=== PATIENT | female | born 1990 | race Caucasian/White ===

== ENCOUNTER → 2017-05-17 | Outpatient (CLI) | payer BC, OTHER ==
[~2017-05-17] MED LIST: PRENTAB26 PO
== END | disposition home or self-care (01) ==
LOC: C.PAPS 06:54
PROVIDERS: ATTEND Physician Assistant
DX: Z12.4 Encounter for screening for malignant neoplasm of cervix (principal)

== ENCOUNTER → 2017-07-06 | Outpatient (CLI) | payer BC ==
[2017-07-06 19:27] LABS: URINE APPEARANCE CLEAR (CLEAR); URINE BILIRUBIN NEG (NEG); URINE COLOR YELLOW; URINE EPITHELIAL CELL AUTO >30 /lpf (0-5); URINE NITRITE NEG (NEG); URINE PH 6.5 (4.5-7.5); URINE SPECIFIC GRAVITY 1.018 (1.000-1.030); UROBILINOGEN NEG (NEG)
[2017-07-06 19:28] LABS: MANUAL MICROSCOPIC REQUIRED? NO; REVIEW REQ? NO
[2017-07-08 14:59] LABS: CHLAMYDIA TRACH RNA*** NOT DETECTED (NOT DETECTED); GC (NEIS GONORRHOEAE)RNA** NOT DETECTED (NOT DETECTED)
== END | disposition home or self-care (01) ==
LOC: C.LABSPEC 17:41
PROVIDERS: ATTEND Obstetrics & Gynecology
DX: Z34.81 Encounter for supervision of other normal pregnancy, first trimester (principal)

== ENCOUNTER → 2017-11-22 | Outpatient (CLI) | payer OTHER | END | disposition home or self-care (01) | LOC: C.LABSPEC 17:33 | PROVIDERS: ATTEND Obstetrics & Gynecology | DX: Z34.82 Encounter for supervision of other normal pregnancy, second trimester (principal) ==

== ENCOUNTER → 2018-01-04 | Outpatient (CLI) | payer OTHER ==
[2018-01-04 18:28] LABS: BASO % 0.2 %; BASO ABS # 0.03 K/uL (0-0.2); EOS % 2.3 %; HEMATOCRIT 37.8 % (37-47); HEMOGLOBIN 13.1 g/dL (12.0-16.0); IG# 0.05 K/uL (0.00-0.02); LYMPH % 17.4 %; LYMPH ABS # 2.28 K/uL (1.2-3.4); MEAN CELL VOLUME 85.9 fL (80-100); MEAN CORPUSCULAR HEMOGLOBIN 29.8 pg (25-34); MEAN CORPUSCULAR HGB CONC 34.7 g/dl (32-36); MEAN PLATELET VOLUME 10.8 fL (7.4-10.4); MONO % 6.4 %; MONO ABS # 0.84 K/uL (0.11-0.59); NEUT % 73.3 %; NEUT ABS # 9.62 K/uL (1.4-6.5); PLATELET COUNT 249 K/uL (130-400); RED CELL DISTRIBUTION WIDTH CV 13.6 % (11.5-14.5); RED CELL DISTRIBUTION WIDTH SD 42.9 fL (36.4-46.3); WHITE BLOOD COUNT 13.12 K/uL (4.8-10.8)
[2018-01-04 18:35] LABS: ALT/SGPT 25 U/L (12-78); BLOOD UREA NITROGEN 12 mg/dl (7-18); CARBON DIOXIDE 27 mmol/L (21-32); CREATININE 0.53 mg/dl (0.60-1.20); GLUCOSE 83 mg/dl (70-99); POTASSIUM 4.4 mmol/L (3.5-5.1); SODIUM 133 mmol/L (136-145)
[2018-01-04 18:38] LABS: ALKALINE PHOSPHATASE 82 U/L (45-117); AST/SGOT 22 U/L (15-37); TOTAL PROTEIN 6.8 gm/dl (6.4-8.2)
== END | disposition home or self-care (01) ==
LOC: C.MNPGOH 17:42 → EDSTATUS 17:47 → C.LABSPEC 17:54
PROVIDERS: ATTEND Nurse Practitioner Family
DX: Z77.098 Contact with and (suspected) exposure to other hazardous, chiefly nonmedicinal, chemicals (principal); Y99.0 Civilian activity done for income or pay

== ENCOUNTER 2018-01-24 09:01 | Outpatient (CLI) | payer OTHER | END 2018-01-24 10:25 | disposition home or self-care (01) | LOC: C.OPB 09:01 → C.LD 09:02 → C.OPB 10:25 | PROVIDERS: ATTEND Obstetrics & Gynecology | DX: O32.1XX0 Maternal care for breech presentation, not applicable or unspecified (principal); O36.5930 Maternal care for other known or suspected poor fetal growth, third trimester, not applicable or unspecified; Z3A.00 Weeks of gestation of pregnancy not specified ==

== ENCOUNTER 2018-02-03 03:06 | Inpatient (IN) | payer OTHER ==
[~2018-02-03] VITALS: Ht 165.1 cm; Wt 69.0 kg
[2018-02-03] VITALS (15 sets, daily range): BP systolic 101–107; BP diastolic 64–67; PULSE 65–70; TEMP 36.4–36.9; O2SAT 95–100; Ht 165.1 cm; Wt 69.0 kg
[2018-02-03] MEDS ORDERED: LACTATED RINGER'S 1000ML 1,000 ML IV SCH ×2 (03:56→14:00)
[2018-02-03] MEDS ORDERED: CITRIC ACID/SODIUM CITRATE 15 ML UDC PO ONE (04:00)
--- NOTE | 2018-02-03 04:08 | History & Physical Bridge Note ---
H&P Re-Evaluation Bridge Note: I have examined the patient, reviewed the History & Physical and in the interval since the performance of the History & Physical I have noted the following changes of clinical significance: Patient presented in active labor with breech presentation. PN record reviewed and accepted without changes otherwise. US used to confirm presentation of fetus before moving to delivery.
[2018-02-03] MEDS ORDERED: OXYTOCIN INJ 10 UNITS/ML VIAL ONE (04:11)
[2018-02-03] MEDS ORDERED: FENTANYL CITRATE INJ 50 MCG/1 ML 2 ML VIAL ONE (04:14)
[2018-02-03] MEDS ORDERED: CEFAZOLIN IV 2,000 MG in SYRINGE 0 ML IV SCH (04:15)
[2018-02-03] MEDS ORDERED: MoRPHine SULFATE PF 1 MG/ML 10 ML AMP/VIAL ONE (04:15)
[2018-02-03 04:23] LABS: BASO % 0.1 %; BASO ABS # 0.01 K/uL (0-0.2); EOS ABS # 0.89 K/uL (0-0.5); HEMATOCRIT 37.2 % (37-47); HEMOGLOBIN 12.8 g/dL (12.0-16.0); IG# 0.06 K/uL (0.00-0.02); LYMPH % 17.4 %; MEAN CELL VOLUME 84.9 fL (80-100); MEAN CORPUSCULAR HEMOGLOBIN 29.2 pg (25-34); MEAN PLATELET VOLUME 10.3 fL (7.4-10.4); MONO ABS # 1.01 K/uL (0.11-0.59); NEUT ABS # 8.49 K/uL (1.4-6.5); PLATELET COUNT 228 K/uL (130-400); RED CELL DISTRIBUTION WIDTH CV 13.5 % (11.5-14.5); RED CELL DISTRIBUTION WIDTH SD 41.8 fL (36.4-46.3); WHITE BLOOD COUNT 12.66 K/uL (4.8-10.8)
[2018-02-03] MEDS ORDERED: FERR1TAB23 (04:26)
[2018-02-03 05:31] LABS: MEAN CORPUSCULAR HGB CONC 34.4 g/dl (32-36)
[2018-02-03] MEDS ORDERED: SODIUM CHLORIDE 0.9% 1000ML 1,000 ML IV PRN (05:43)
[2018-02-03] MEDS ORDERED: NALOXONE HCL INJ 1 MG in SODIUM CHLORIDE 0.9% 1000ML 1,000 ML IV PRN ×4 (05:43)
[2018-02-03] MEDS ORDERED: LACTATED RINGER'S 1000ML 500 ML IV PRN (05:43)
[2018-02-03] MEDS ORDERED: NALOXONE HCL INJ 0.08 MG in SYRINGE 1.8 ML IV PRN (05:43)
[2018-02-03] MEDS ORDERED: SUPERCREAM 0.870 % 15GM JAR EXT PRN (05:45)
[2018-02-03] MEDS ORDERED: NO NARCOTICS OR SEDATIVES SCH (05:45)
[2018-02-03] MEDS ORDERED: EpHEDrine SULFATE INJ 50 MG/ML AMP IV PRN (05:45)
[2018-02-03] MEDS ORDERED: ONDANSETRON INJ 2 MG/ML 2 ML VIAL IV PRN ×2 (05:45→23:45)
[2018-02-03] MEDS ORDERED: KETOROLAC TROMETHAMINE 30 MG/ML VIAL IV. PRN ×2 (05:45→23:45)
[2018-02-03] MEDS ORDERED: NALOXONE HCL 0.4 MG/1 ML VIAL/CARP IV PRN (05:45)
[2018-02-03] MEDS ORDERED: HYDROCORTISONE ACETATE 25 MG SUPP PR PRN (05:45)
[2018-02-03] MEDS ORDERED: NALBUPHINE HCL INJ 10 MG/ML AMP IV PRN (05:45)
[2018-02-03] MEDS ORDERED: BENZOCAINE 20% AER SPR 82.5 GM CAN EXT PRN (05:45)
[2018-02-03] MEDS ORDERED: PROMETHAZINE HCL INJ 25 MG in SODIUM CHLORIDE 0.9% 50ML 50 ML IV PRN ×2 (05:45→23:45)
[2018-02-03] MEDS ORDERED: MoRPHine SULFATE PF 1 MG/ML 10 ML AMP/VIAL EPI PRN (05:45)
[2018-02-03] MEDS ORDERED: DiphenhydrAMINE HCL 50 MG/ML VIAL IV PRN ×2 (05:45→23:45)
[2018-02-03] MEDS ORDERED: LANOLIN OINT EXT PRN (05:45)
--- NOTE | 2018-02-03 05:49 | [facility] Post Operative Brief Note ---
Immediate Operative Summary Operative Date Feb 03, 2018. Pre-Operative Diagnosis Breech, Active Labor Post-Operative Diagnosis Breech, Active Labor Procedure(s) Performed Primary low transverse Surgeon RENETTA Interior Design Teacher Surgeon(s) HOLLIS Estimated Blood Loss 500CC Findings Consistent with Post-Op Diagnosis Specimens PLACENTA EXAM CORD BLOOD CORD GASES Drains None Anesthesia Type Spinal Complication(s) none Disposition Accompanied Pt To Recover: yes Disposition: L&D
[2018-02-03] MEDS ORDERED: OXYTOCIN INJ 30 UNITS in LACTATED RINGER'S 1000ML 1,000 ML IV SCH (06:00)
[2018-02-03] MEDS ORDERED: ONDANSETRON INJ 2 MG/ML 2 ML VIAL ONE (06:22)
--- NOTE | 2018-02-03 06:51 | OPERATIVE REPORT ---
DATE OF OPERATION: 02/03/2018 PREOPERATIVE DIAGNOSES: 1. Sánchez intrauterine in kiya breech position. 2. Active labor. POSTOPERATIVE DIAGNOSES: Same. PROCEDURE: Primary low transverse section. SURGEON: Joselin Tamayo MD SALES CONSULTANT: Matt Gentile MD ESTIMATED BLOOD LOSS: 500 mL. FINDINGS: Normal tubes and ovaries bilaterally. in kiya breech position. SPECIMENS: Placenta for exam, cord blood and cord gases. DRAINS: None. ANESTHESIA: Spinal. COMPLICATIONS: None. DISPOSITION: Stable to labor and delivery. DESCRIPTION OF PROCEDURE: Lia is a 28-year-old 2, para 1 with a history of a prior vaginal delivery; however, this baby is in breech position; therefore, she was planned for section on 02/04/2018; however, on the very cargo bracer hours of February 03, she presented to the hospital in active labor, found to be 6 cm dilated and confirmed to still be in kiya breech position. Lia was therefore brought to the operating room for a section. Spinal anesthesia was established. The patient was placed in supine position with a leftward tilt, prepped and draped in standard sterile fashion and a hard time-out was taken prior to proceeding. A Pfannenstiel incision was created and carried sharply through the subcutaneous tissue to the fascia which was incised and then extended using Stevens scissors. Artie's were applied superiorly and inferiorly and used to sharply and bluntly dissect the fascia off the underlying rectus. The midline of the rectus was partially in a blunt manner and the inferior portion was in a sharp manner. Peritoneum was then bluntly entered. The bladder blade was placed. Lower uterine segment was found to be well developed. Entry to the uterus was made in a blunt manner using a scalpel to create a transverse hysterotomy and a finger to make final entry to the cavity. The fetus was encountered in kiya breech position with sacrum anterior. The sacrum and buttocks were delivered using mild fundal pressure. Each leg was then retrieved and swept in a physiologic fashion. The body delivered and each arm was then swept in a physiologic fashion and then the head was delivered while maintaining flexion. The vigorous infant was placed on the field while the cord was doubly clamped and cut, and the was then taken to the warmer. Cord gases and cord blood were collected. The placenta was then manually extracted and found to be intact with a 3-vessel cord. The uterus was exteriorized, cleared of all clot and debris using a dry lap sponge. Allis clamps were then placed on the angles of the hysterotomy, which was repaired in the usual fashion with 0 Vicryl suture in a locked primary layer in an imbricating secondary layer. Of note, there was slight extension of the right angle of the hysterotomy inferiorly towards, but not into the cervix; however, this was able to be repaired in 1 continuous line with the hysterotomy and her scar remains low transverse. At the completion of repair, the posterior gutter was cleared of all clot and debris using irrigation, the uterus was then gently reapproximated and the lateral gutters were cleared of clot and debris using a damp lap sponges. The hysterotomy was examined off tension and found to be hemostatic. The rectus muscles were allowed to rest, off tension and these were nearly completely together in the midline. For that reason, the decision was made to go ahead and close the midline of the rectus muscles, which was done using 0 chromic suture in a running nonlocked fashion. Following closure of the rectus, the fascia was closed using #1 Vicryl suture in a running nonlocked manner. At the completion of the repair, the fascia was examined and found to be free of defect. The subcutaneous tissue was copiously irrigated and then closed with a 3-0 chromic. The skin was then sealed using 4-0 Monocryl in a running subcuticular manner and a Dermabond dressing. The López was draining clear yellow urine at the time and the patient was transferred back to her recovery room in stable condition. I attest to the content of the Intraoperative Record and any orders documented therein. Any exception s are noted below.
[2018-02-03] MEDS: DOCUSATE SODIUM 100 MG CAP PO SCH ×2 (08:00→22:23)
[2018-02-03] MEDS: PRENATAL VITAMIN TAB PO SCH (08:00)
[2018-02-03] MEDS: SIMETHICONE 80 MG CHEW PO SCH ×4 (08:12→22:23)
[2018-02-03] MEDS ORDERED: MEPERIDINE HCL 50 MG/ML CARP IV PRN ×2 (23:45)
[2018-02-03] MEDS ORDERED: DC INTRASPINAL MORPHINE SCH (23:45)
[2018-02-03] MEDS ORDERED: OXYCODONE/ACETAMINOPHEN 5-325 TAB PO PRN ×2 (23:45)
[2018-02-04 00:05] VITALS: BP 102/68; PULSE 64; TEMP 36.5; O2SAT 99
[2018-02-04] MEDS: IBUPROFEN 600 MG TAB PO PRN ×5 (00:59→21:21)
[2018-02-04 04:30] VITALS: BP 93/59; PULSE 72; TEMP 36.4; O2SAT 99
[2018-02-04 06:05] LABS: BASO % 0.2 %; BASO ABS # 0.03 K/uL (0-0.2); EOS % 2.3 %; EOS ABS # 0.33 K/uL (0-0.5); HEMATOCRIT 32.2 % (37-47); HEMOGLOBIN 10.9 g/dL (12.0-16.0); IG# 0.06 K/uL (0.00-0.02); LYMPH % 14.7 %; LYMPH ABS # 2.15 K/uL (1.2-3.4); MEAN CELL VOLUME 85.2 fL (80-100); MEAN CORPUSCULAR HEMOGLOBIN 28.8 pg (25-34); MEAN CORPUSCULAR HGB CONC 33.9 g/dl (32-36); MEAN PLATELET VOLUME 9.8 fL (7.4-10.4); MONO % 9.5 %; MONO ABS # 1.39 K/uL (0.11-0.59); NEUT % 72.9 %; PLATELET COUNT 214 K/uL (130-400); RED CELL DISTRIBUTION WIDTH CV 13.8 % (11.5-14.5); RED CELL DISTRIBUTION WIDTH SD 42.5 fL (36.4-46.3); WHITE BLOOD COUNT 14.66 K/uL (4.8-10.8)
--- NOTE | 2018-02-04 06:58 | Progress Note ---
Subjective Feb 04, 2018. Subjective conversation w/ patient, conversation w/ family, physical exam, chart review, lab review Ambulation: ambulating normally Voiding: no voiding problems Passing Gas: Yes Diet Tolerance: Regular Diet Lochia: Moderate Feeding Type: Breast Feeding Review of Systems Constitutional: No fever, No chills Respiratory: No cough, No shortness of breath Cardiac: No chest pain, No palpitations Abdomen: No pain, No nausea, No vomiting Female : No dysuria Objective Vital Signs Date Time Temp Pulse Resp B/P (MAP) Pulse Ox O2 Delivery O2 Flow Rate FiO2 02/04/18 04:30 36.4 72 16 93/59 (70) 99 Room Air 02/04/18 00:05 99 Room Air 02/04/18 00:05 36.5 64 16 102/68 (79) 99 Room Air 02/03/18 22:00 16 98 02/03/18 21:00 16 99 02/03/18 20:00 16 98 02/03/18 19:30 36.8 66 16 107/67 (80) Room Air 02/03/18 19:00 16 98 02/03/18 18:00 16 99 02/03/18 17:00 16 99 02/03/18 16:00 36.9 69 16 102/65 (77) Room Air 02/03/18 16:00 99 Room Air 02/03/18 16:00 20 99 02/03/18 14:10 20 99 02/03/18 13:10 18 100 02/03/18 12:10 18 97 02/03/18 11:10 36.5 65 18 101/67 (78) 99 Room Air 02/03/18 11:10 18 99 02/03/18 10:10 36.4 70 18 102/64 (77) 99 Room Air 02/03/18 10:10 18 99 02/03/18 09:10 18 99 02/03/18 09:10 36.4 65 16 101/64 (76) 99 Room Air 02/03/18 08:10 98 Room Air 02/03/18 08:10 18 95 02/03/18 08:10 36.5 66 18 106/66 (79) 95 Room Air 02/03/18 08:10 95 Room Air Physical Exam General Appearance: WELL-APPEARING, WD/WN, NO APPARENT DISTRESS Respiratory/Chest: lungs clear, no respiratory distress Cardiovascular: regular rate, rhythm, no murmur Abdomen: non tender, soft Fundus: Firm, Relation to Umbilicus (1 cm below ) Incision Description: Clean, Dry & Intact Extremities: non-tender, normal inspection Laboratory Results Last 24 Hours Test 02/04/18 05:58 White Blood Count 14.66 K/uL Red Blood Count 3.78 M/uL Hemoglobin 10.9 g/dL Hematocrit 32.2 % Mean Corpuscular Volume 85.2 fL Mean Corpuscular Hemoglobin 28.8 pg Mean Corpuscular Hemoglobin Concent 33.9 g/dl Platelet Count 214 K/uL Mean Platelet Volume 9.8 fL Neutrophils (%) (Auto) 72.9 % Lymphocytes (%) (Auto) 14.7 % Monocytes (%) (Auto) 9.5 % Eosinophils (%) (Auto) 2.3 % Basophils (%) (Auto) 0.2 % Neutrophils # (Auto) 10.70 K/uL Lymphocytes # (Auto) 2.15 K/uL Monocytes # (Auto) 1.39 K/uL Eosinophils # (Auto) 0.33 K/uL Basophils # (Auto) 0.03 K/uL RDW Standard Deviation 42.5 fL RDW Coefficient of Variation 13.8 % Immature Granulocyte % (Auto) 0.4 % Immature Granulocyte # (Auto) 0.06 K/uL Medications Current Inpatient Medications Medications (Trade) Dose Ordered Sig/Ashkan Route Start Time Stop Time Status Last Admin Dose Admin Morphine Sulfate (Duramorph Pf Inj) TODAY PRN EPI 02/03/18 05:45 Lactated Ringer's 1,000 ml @ 125 mls/hr Q8H IV 02/03/18 14:00 03/05/18 13:59 02/03/18 14:58 125 MLS/HR Ketorolac Tromethamine (Toradol Inj) 30 mg Q6H PRN IV. 02/03/18 23:45 02/08/18 23:44 Meperidine HCl (Demerol Inj) 50 mg Q4H PRN IV 02/03/18 23:45 02/17/18 23:44 Meperidine HCl (Demerol Inj) 75 mg Q4H PRN IV 02/03/18 23:45 02/17/18 23:44 Oxycodone/ Acetaminophen (Percocet 5-325mg Tab) 1 tab Q4H PRN PO 02/03/18 23:45 02/17/18 23:44 Oxycodone/ Acetaminophen (Percocet 5-325mg Tab) 2 tab Q4H PRN PO 02/03/18 23:45 02/17/18 23:44 Ibuprofen (Motrin Tab) 600 mg Q4H PRN PO 02/03/18 05:45 03/05/18 05:44 02/04/18 00:59 600 MG Promethazine HCl 25 mg/Sodium Chloride 51 ml @ 204 mls/hr Q4H PRN IV 02/03/18 23:45 03/05/18 23:44 Ondansetron HCl (Zofran Inj) 4 mg Q4H PRN IV 02/03/18 23:45 03/05/18 23:44 02/03/18 06:25 4 MG Prenat Multivit/ Oil Mixer/Iron/Folic Ac ( Vitamin Tab) 1 tab DAILY PO 02/03/18 08:00 03/05/18 07:59 Docusate Sodium (coLACE CAP) 100 mg BID PO 02/03/18 08:00 03/05/18 07:59 02/03/18 22:23 100 MG Cocaine HCl (Supercream 0.870% Cr) BID PRN EXT 02/03/18 05:45 02/17/18 05:44 Lanolin (Lanolin Oint) PRN PRN EXT 02/03/18 05:45 03/05/18 05:44 Hydrocortisone Acetate (Anusol Hc Supp) 25 mg BID PRN RI 02/03/18 05:45 03/05/18 05:44 Benzocaine (Dermoplast Aero Spr) 1 appln PRN PRN EXT 02/03/18 05:45 03/05/18 05:44 Simethicone (Mylicon Chew Tab) 80 mg QID PO 02/03/18 08:12 03/05/18 08:59 02/03/18 22:23 80 MG Diphenhydramine HCl (Benadryl Cap) 25 mg QID PRN PO 02/03/18 23:45 03/05/18 23:44 Diphenhydramine HCl (Benadryl Inj) 25 mg QID PRN IV 02/03/18 23:45 03/05/18 23:44 Assessment and Plan Post-Op Day#: 1 Continue Routine Care: 28, F, , A+/GBS+/RI, post op day 1. Patient is doing well clinically. She has been up ambulating with out dizziness. López was removed last evening and has urinated on her own since without issue. Vitals reviewed, WNL. Hgb 12.8 on admission--->pending this am. Plan; 1. Recovery following csection; ambulate, control pain, monitor lochia, support BF, monitor i/o's Resident Physician Supervision Note: I interviewed and examined the patient. Discussed with Dr. Carmona and agree with findings and plan as documented in the note. Any exceptions or clarifications are listed here: routine care doing well Documented By: Matt Gentile
[2018-02-04] MEDS: DOCUSATE SODIUM 100 MG CAP PO SCH ×2 (07:54→20:40)
[2018-02-04] MEDS: PRENATAL VITAMIN TAB PO SCH (07:54)
[2018-02-04] MEDS: SIMETHICONE 80 MG CHEW PO SCH ×4 (07:54→20:40)
[2018-02-04 08:00] VITALS: BP 97/63; PULSE 94; TEMP 36.7
[2018-02-04 16:40] VITALS: BP 97/64; PULSE 70; TEMP 36.7
[2018-02-04 23:20] VITALS: BP 105/70; PULSE 74; TEMP 36.7
[2018-02-05] MEDS: IBUPROFEN 600 MG TAB PO PRN ×2 (03:39→08:45)
--- NOTE | 2018-02-05 06:12 | Discharge Instructions ---
Discharge Instructions Date of Service Feb 05, 2018. Admission Reason for Admission: Breech Presentation Discharge Discharge Diagnosis / Problem: csection Discharge Goals Goal(s): Routine recovery after Medications Continue Dispensed Medications: supercream, dermaplast, tucks, lansinoh Activity Recommendations Activity Limitations: per Instructions/Follow-up section . Instructions / Follow-Up Instructions / Follow-Up ACTIVITY RECOMMENDATIONS: * Gradual return to full activity over the next 2-3 weeks. * No lifting - nothing heavier than baby over the next 2-3 weeks. * Do not engage in vigorous exercise, sexual activity or sports until cleared by your physician. * Do not drive or operate any motorized equipment until cleared by your physician. * You may shower/bathe daily. MEDICATIONS: For discomfort or pain, you may use Acetaminophen (Tylenol), Ibuprofen (Advil), or Naproxen (Aleve) following the package directions. For constipation you may use Colace following the package directions. BREAST CARE: If you are not breast feeding: * Wear a supportive bra 24 hours a day for one to two weeks. * Avoid stimulating your breasts and nipples as much as possible during the first few weeks after delivery. * When taking a shower, have the warm water hit your back, not breasts. * When your breasts feel full, apply ice packs. Usually three to four times a day helps ease the discomfort. * Take a mild pain medication (Tylenol / Motrin) when you are uncomfortable. If breast feeding: * Use breast milk to lubricate nipples. Lansinoh cream may be used for sore nipples. You do not need to remove cream prior to breast feeding. If using a different brand of cream, check the label for directions regarding removal of cream prior to nursing. * Wear a supportive bra. * If having problems with breasts or breast feeding, call a executive search consultant or your health care provider. SPECIAL CARE INSTRUCTIONS: When you are discharged from the hospital, it is important for you to follow the instructions listed below: * During the first week at home, you should be able to care for yourself and your baby. In addition, the usual light household activities are encouraged. * Limit your activities to the way you feel. Do not try to clean the house or move furniture. Be sensible. * If you actively engage in sports and have done so up until the time of your delivery, you may resume these activities as soon as you feel able. This may take up to one month or even longer. Use good judgment. * Continue to take your vitamins for at least six weeks after the of your baby. * Your diet need not be limited unless you were on a special diet before your delivery. Breast-feeding mothers need around 2500 calories per day and at least 64-80 ounces of fluid per day (8 to 10 glasses). * You should eat foods from the four major food groups. Crash diets or fad diets are to be avoided. Eating lean meats, fresh fruits and vegetables, low-fat dairy products, high fiber foods and a regular exercise program, will help you get back to your pre- weight without putting your health at risk. * Constipation is sometimes a problem after delivery. Take a mild laxative as needed. If breast feeding, Milk of Magnesia is acceptable to use. You may use a suppository or Fleets enema. * A daily shower or tub bath is suggested. Wash incision daily with warm soapy water and pat dry. It doesn't need to be covered unless drainage is present. * A bloody vaginal discharge will usually continue until around four weeks . A small amount of bleeding may continue for as long as six weeks. Vaginal discharge changes from the bright red bleeding after delivery to pink then brownish and finally yellowish-pink before becoming white and disappearing. * Bleeding may increase with activity. Your first period may come in 4-8 weeks. If you are breast feeding, your period may be delayed even longer. * Tat Momoli (sex) can begin whenever both you and your partner feel comfortable and do not have any form of genital infection. It is recommended that you wait at least six weeks for internal and external healing to occur. If you have questions, please talk to your health care practitioner. A condom should be used to prevent infection and . * Foreplay, gentle intercourse and lubrication is very important the first several times to prevent pain. A water-based lubricant such as K-Y jelly or Astroglide may be used. * If you have RH negative blood and your baby is RH positive, you will receive RHOGAM by injection prior to discharge. The nurse will give you a card to keep with you that has the date and place that you received RHOGAM after delivery. * During your care, you had a Rubella screen done to check for the presence of rubella antibodies in your blood. If your test was negative, you will receive a Rubella vaccine prior to discharge. This vaccine may cause a fever, soreness at the injection site and flu-like symptoms. If these symptoms persist, notify your health care practitioner. is not advised for one month after a Rubella vaccine. * Verbalizes understanding of car seat law as reviewed with patient nursing. * Car Seat hand-out given and reviewed with patient by nursing. * Shaken baby information reviewed with patient by nursing. Call you doctor if: * Heavy bleeding (saturating several pads an hour) or passing clots the size of your fist. * A fever >101 degrees F (38.3 degrees C) on two occasions four hours apart and /or chills. * Unusual pain in the pelvic or vaginal areas. * Call the doctor for any increased redness, drainage or swelling around the incision and any pain unrelieved by prescribed pain medication. * "Baby Blues" lasting longer than two weeks. If you have any questions or concerns, call your health care practitioner at . FOLLOW UP VISIT: * Please call the office at to schedule a 6 week examination. It is important you keep this appointment. It is important for you to make arrangements for either yearly or twice yearly check-ups thereafter. Current Hospital Diet Patient's current hospital diet: Regular Diet Discharge Diet Recommended Diet: Regular Diet, Regular OB Diet Procedures Procedures Performed: Primary low transverse Pending Studies Studies pending at discharge: no Medical Emergencies . Who to Call and When: Medical Emergencies: If at any time you feel your situation is an emergency, please call [phone] immediately. . Non-Emergent Contact Non-Emergency issues call your: Primary Care Provider, Artillery Officer . . "Provider Documentation" section prepared by Jung Carmona. .
[2018-02-05] MEDS ORDERED: MTR600X PO (07:10)
[2018-02-05] MEDS ORDERED: OXYC-57 PO (07:10)
--- NOTE | 2018-02-05 07:18 | Progress Note ---
Subjective Feb 05, 2018. Subjective conversation w/ patient, conversation w/ family, physical exam, chart review, lab review Ambulation: ambulating normally Voiding: no voiding problems Passing Gas: Yes Diet Tolerance: Regular Diet Lochia: Small Feeding Type: Breast Feeding Review of Systems Constitutional: No fever, No chills Respiratory: No cough, No shortness of breath Cardiac: No chest pain, No palpitations Abdomen: No nausea, No vomiting Female : No dysuria Objective Vital Signs Date Time Temp Pulse Resp B/P (MAP) Pulse Ox O2 Delivery O2 Flow Rate FiO2 02/04/18 23:20 Room Air 02/04/18 23:20 36.7 74 16 105/70 (82) Room Air 02/04/18 16:40 36.7 70 16 97/64 (75) 02/04/18 09:00 Room Air 02/04/18 08:00 36.7 94 20 97/63 (74) Room Air Physical Exam General Appearance: WELL-APPEARING, WD/WN, NO APPARENT DISTRESS Respiratory/Chest: lungs clear, no respiratory distress Cardiovascular: regular rate, rhythm, no murmur Abdomen: non tender, soft Fundus: Firm Incision Description: Clean, Dry & Intact Extremities: non-tender, normal inspection Assessment and Plan Post-Op Day#: 2 Continue Routine Care: 28, F, , A+/GBS+/RI, post op day 2. Patient is doing well clinically. She has been up ambulating with out dizziness. Vitals reviewed, WNL. Hgb 12.8 on admission--->10.8 on 02/04. No signs or sx of anemia. Plan; 1. Recovery following csection; ambulate, control pain, monitor lochia, support BF, monitor i/o's 2. Discussed discharge planning for today; 02/05. Resident Physician Supervision Note: I interviewed and examined the patient. Discussed with Dr. Carmona and agree with findings and plan as documented in the note. Any exceptions or clarifications are listed here: [None] Documented By: Jerardo Pena
[2018-02-05 08:30] VITALS: BP 100/62; PULSE 74; TEMP 37.1; O2SAT 97
[2018-02-05] MEDS: PRENATAL VITAMIN TAB PO SCH (08:45)
[2018-02-05] MEDS: DOCUSATE SODIUM 100 MG CAP PO SCH (08:45)
[2018-02-05] MEDS: SIMETHICONE 80 MG CHEW PO SCH (08:45)
[2018-02-05 11:40] VITALS: BP_DIAS 62; PULSE 74; TEMP 37.1
== END 2018-02-05 11:40 | disposition home or self-care (01) | DRG 765 ==
LOC: C.OPB 03:06 → C.LD 03:06 → C.OPB 04:04 → C.OBG 08:11
PROVIDERS: ADMIT Obstetrics & Gynecology; ATTEND Obstetrics & Gynecology
PROC: 10D00Z1 Extraction of Products of Conception, Low, Open Approach (ICD-10-PCS; principal; 2018-02-03 03:53)
DX: O32.1XX0 Maternal care for breech presentation, not applicable or unspecified (principal); O36.5930 Maternal care for other known or suspected poor fetal growth, third trimester, not applicable or unspecified; O24.429 Gestational diabetes mellitus in childbirth, unspecified control; O99.824 Streptococcus B carrier state complicating childbirth; Z3A.38 38 weeks gestation of pregnancy; Z37.0 Single live birth

== ENCOUNTER 2022-04-20 21:08 | Inpatient (IN) ==
[2022-04-20] MEDS ORDERED: OXYTOCIN 30 UNITS/500 ML BAG IV PRN ×2 (21:32)
[2022-04-20] MEDS ORDERED: PENICILLIN G POTASSIUM 6 MU in DEXTROSE 5% 250 ML IV ONE (21:45)
[2022-04-20 22:01] LABS: Hemoglobin 11.9 g/dL (12.0-16.0); Mean Corpuscular Hemoglobin 29.1 pg (25-34); Mean Corpuscular Volume 85.6 fL (80-100); Mean Platelet Volume 10.2 fL (7.4-10.4); Platelet Count 255 K/uL (130-400); RDW Coefficient of Variation 12.8 % (11.5-14.5); RDW Standard Deviation 40.3 fL (36.4-46.3); Red Blood Count 4.09 M/uL (4.2-5.4); White Blood Count 12.33 K/uL (4.8-10.8)
[2022-04-20] MEDS: LACTATED RINGER'S 1,000 ML IV PRN (22:11)
[2022-04-21] MEDS ORDERED: fentaNYL 2MCG/ML ROPIVACAINE 1.25MG/ML 100 ML BAG EPI ONE (00:26)
[2022-04-21] MEDS ORDERED: ePHEDrine sulfate 50 MG/ML AMP ONE (00:26)
[2022-04-21] MEDS ORDERED: SODIUM CHLORIDE 0.9% INJ 10 ML VIAL ONE (00:26)
[2022-04-21] MEDS ORDERED: BUPIVACAINE 0.25% 30 ML VIAL ONE (00:26)
[2022-04-21] MEDS ORDERED: fentaNYL citrate 100 MCG/2 ML VIAL ONE (00:26)
[2022-04-21] MEDS ORDERED: PENICILLIN G POTASSIUM 3 MU in DEXTROSE 5% 100 ML IV PRN (00:33)
[2022-04-21] MEDS: LACTATED RINGER'S 1,000 ML IV PRN (01:03)
--- NOTE | 2022-04-21 01:44 | Anesthesiology Consultation ---
Date of Service April 21, 2022 Assessment & Plan Chart Review Chart Review: Acceptable Risk for Labor Epidural Consults Requested none History Height/Weight Height: 5 ft 5 in Weight: 63.957 kg Allergies Allergy/AdvReac Type Severity Reaction Status Date / Time No Known Drug Allergies Allergy Verified 04/17/22 13:47 Medications Home Medications Medication Instructions Recorded Confirmed Last Taken prenat.vits,paulina,[id number] 1 tab PO DAILY 09/26/21 04/17/22 Unknown acetone (urine) test (Ketone Urine #50 ea 11/21/21 04/17/22 Unknown Test) blood-glucose meter (OneTouch #1 ea 11/21/21 04/17/22 Unknown Verio Reflect Meter) lancets 33 gauge (OneTouch Delica #150 ea 11/21/21 04/17/22 Unknown Lancets) blood sugar diagnostic (OneTouch #150 ea 03/02/22 04/17/22 Unknown Verio test strips) Active Medications Generic Name Dose Route Start Last Admin Trade Name Freq PRN Reason Stop Dose Admin Oxytocin 30 units in 500 mls @ 1 mls/hr 04/20/22 21:32 04/20/22 23:43 Pitocin IV 04/22/22 21:31 0.06 units/hr .Q24H PRN 1 mls/hr Labor Induction/Augmentation Administration Protocol 0.06 UNITS/HR Lactated Ringer's 1,000 mls @ 125 mls/hr 04/20/22 21:32 04/21/22 01:03 Lr IV 04/22/22 21:31 999 mls/hr .Q8H PRN Administration L&D Protocol Protocol Past Medical History Medical History (Updated 04/13/22 @ 15:15 by Joselin Tamayo MD) History of prior with IUGR History of varicella exam Past Family History Family History (Updated 09/26/21 @ 14:12 by Opal Louis) Grandmother (Maternal) Diabetes Mother Hypertension Thyroid disease Osteopenia Dyslipidemia Thyroid cancer Father Hypertension Dyslipidemia Primary cancer of bone marrow Grandmother (Paternal) Ovarian cancer Denies family history of Breast cancer Colorectal cancer Past Surgical History Surgical History (Updated 09/26/21 @ 14:18 by Opal Louis) H/O oral surgery S/P section S/P dilation and curettage Social History Smoking Status: Never smoker Hx Alcohol Use: No Hx Substance Use: No Physical Exam Vital Signs Last Vital Signs Temp 36.8 C 04/21/22 00:53 Pulse 78 04/21/22 01:40 Resp 18 04/21/22 00:53 BP 96/52 L 04/21/22 01:40 Pulse Ox 99 04/21/22 01:38 Testing Laboratory Results 04/20/22 21:48 Blood Type A Positive 04/20/22 21:47 Antibody Screen NEGATIVE 04/20/22 21:47
[2022-04-21] MEDS ORDERED: NALBUPHINE HCL INJ 10 MG/ML AMP IV PRN (01:52)
[2022-04-21] MEDS ORDERED: NALOXONE HCL 0.4 MG/1 ML VIAL/CARP IV PRN (01:52)
[2022-04-21] MEDS ORDERED: diphenhydrAMINE 50 MG/ML VIAL IV PRN (01:52)
[2022-04-21] MEDS ORDERED: ePHEDrine sulfate 50 MG/ML AMP IV PRN (01:52)
[2022-04-21] MEDS ORDERED: NALOXONE HCL 1 MG in SODIUM CHLORIDE 0.9% 1000ML 1,000 ML IV PRN (01:52)
[2022-04-21] MEDS ORDERED: fentaNYL 2MCG/ML ROPIVACAINE 1.25MG/ML 100 ML BAG EPI PRN (01:52)
--- NOTE | 2022-04-21 03:46 | Delivery Summary ---
Vaginal Delivery Summary Date of Service April 21, 2022 Vaginal Delivery Summary DIAGNOSES: 1. Sánchez intrauterine at 37w4d gestation. 2. Spontaneous onset of labor. 3. Group B Streptococcus Pos. PROCEDURE: Spontaneous vaginal delivery without laceration. SURGEON: Joselin Tamayo MD. LOOM DOFFER: None. ESTIMATED BLOOD LOSS: 250 mL. COMPLICATIONS: None. PLACENTA: Spontaneous and intact with a 3-vessel cord. DISPOSITION: Stable to labor and delivery. DESCRIPTION: The patient pushed well and brought the head to in OA position. The 's head was allowed to deliver with contraction force and no further active pushing, with the perineum protected during this time. There was no nuchal cord. The left shoulder was anterior. The shoulders and body delivered without any difficulty, and the was placed on the maternal abdomen. It was vigorous and moving all extremities, and making respiratory efforts. The cord was doubly clamped by the MD and then cut by the FOB. The placenta delivered spontaneously and was noted to be intact and with a 3VC. The cervix, vagina and perineum were examined and were found to be without defect requiring repair. The fundus was firm and lochia minimal immediately after delivery. [facility] Vaginal Delivery Codes: 63769 global code for the antepartum, delivery, and post-
[2022-04-21] MEDS ORDERED: oxyCODONE/ACETAMINOPHEN 5mg/325mg TAB PO PRN (04:27)
[2022-04-21] MEDS ORDERED: BENZOCAINE 20% AER SPR 82.5 GM CAN EXT PRN (04:27)
[2022-04-21] MEDS ORDERED: DIPHTHERIA/TETANUS/PERTUSSIS 0.5 ML SYR/VIAL IM ONE (04:27)
[2022-04-21] MEDS ORDERED: HYDROCORTISONE ACETATE 25 MG SUPP PR PRN (04:27)
[2022-04-21] MEDS ORDERED: ACETAMINOPHEN 325 MG TAB PO PRN (04:27)
--- NOTE | 2022-04-21 06:54 | Anesthesiology Progress Note ---
Date of Service April 21, 2022 Anesthesia Post Procedure Vital Signs Vital Signs: Temp Pulse Pulse Resp BP BP Pulse Ox 04/21/22 06:10 36.7 C 78 16 109/64 98 04/21/22 05:30 82 106/62 04/21/22 05:15 75 113/63 04/21/22 05:00 74 115/60 04/21/22 04:46 86 113/56 L 04/21/22 04:31 74 111/64 04/21/22 04:16 84 119/69 04/21/22 04:13 73 99 04/21/22 04:08 82 100 04/21/22 04:03 77 100 04/21/22 04:01 75 115/78 04/21/22 04:00 36.6 C 16 100 04/21/22 03:58 74 100 04/21/22 03:53 83 100 04/21/22 03:48 81 99 04/21/22 03:45 36.4 C L 16 04/21/22 03:43 82 100 04/21/22 03:38 91 H 100 04/21/22 03:33 83 99 04/21/22 03:28 85 99 04/21/22 03:23 93 H 100 04/21/22 03:21 99 H 91 04/21/22 03:19 87 129/63 04/21/22 03:18 85 100 04/21/22 03:16 99 H 90 04/21/22 03:13 101 H 109/87 98 04/21/22 03:09 86 142/72 H 04/21/22 03:08 91 H 100 04/21/22 03:03 86 115/71 100 04/21/22 02:58 84 110/62 100 04/21/22 02:53 86 116/64 100 04/21/22 02:48 80 100 04/21/22 02:47 72 117/56 L 04/21/22 02:44 78 124/71 04/21/22 02:43 78 100 04/21/22 02:39 78 125/63 04/21/22 02:38 82 100 04/21/22 02:34 70 116/68 04/21/22 02:33 72 100 04/21/22 02:28 81 99 04/21/22 02:27 77 117/68 04/21/22 02:24 71 116/59 L 04/21/22 02:23 84 100 04/21/22 02:22 74 117/66 04/21/22 02:18 74 100 04/21/22 02:16 74 108/65 04/21/22 02:13 74 100 04/21/22 02:11 71 98/54 L 04/21/22 02:08 72 98 04/21/22 02:05 72 108/60 04/21/22 02:03 75 99 04/21/22 02:00 71 104/59 L 04/21/22 01:59 04/21/22 01:58 73 100 04/21/22 01:56 72 105/55 L 04/21/22 01:53 74 100 04/21/22 01:51 75 116/68 04/21/22 01:48 75 100 04/21/22 01:44 73 114/62 04/21/22 01:43 86 99 04/21/22 01:40 78 96/52 L 04/21/22 01:38 73 99 04/21/22 01:34 77 111/61 04/21/22 01:33 77 100 04/21/22 01:30 72 115/60 04/21/22 01:28 94 H 99 04/21/22 01:27 74 118/62 04/21/22 01:23 78 100 04/21/22 01:20 97 H 136/79 04/21/22 01:18 83 98 04/21/22 01:13 77 98 04/21/22 00:53 36.8 C 18 04/21/22 00:05 36.6 C 18 04/21/22 00:03 72 116/74 04/21/22 00:00 36.6 C 04/20/22 23:00 36.5 C 04/20/22 21:29 36.6 C 94 H 16 129/78 04/20/22 21:18 94 H 129/78 04/20/22 21:16 36.7 C 16 Pulse Ox 04/21/22 06:10 04/21/22 05:30 04/21/22 05:15 04/21/22 05:00 04/21/22 04:46 04/21/22 04:31 04/21/22 04:16 04/21/22 04:13 04/21/22 04:08 04/21/22 04:03 04/21/22 04:01 04/21/22 04:00 04/21/22 03:58 04/21/22 03:53 04/21/22 03:48 04/21/22 03:45 04/21/22 03:43 04/21/22 03:38 04/21/22 03:33 04/21/22 03:28 04/21/22 03:23 04/21/22 03:21 04/21/22 03:19 04/21/22 03:18 04/21/22 03:16 04/21/22 03:13 04/21/22 03:09 04/21/22 03:08 04/21/22 03:03 04/21/22 02:58 04/21/22 02:53 04/21/22 02:48 04/21/22 02:47 04/21/22 02:44 04/21/22 02:43 04/21/22 02:39 04/21/22 02:38 04/21/22 02:34 04/21/22 02:33 04/21/22 02:28 04/21/22 02:27 04/21/22 02:24 04/21/22 02:23 04/21/22 02:22 04/21/22 02:18 04/21/22 02:16 04/21/22 02:13 04/21/22 02:11 04/21/22 02:08 04/21/22 02:05 04/21/22 02:03 04/21/22 02:00 04/21/22 01:59 99 04/21/22 01:58 04/21/22 01:56 04/21/22 01:53 04/21/22 01:51 04/21/22 01:48 04/21/22 01:44 04/21/22 01:43 04/21/22 01:40 04/21/22 01:38 04/21/22 01:34 04/21/22 01:33 04/21/22 01:30 04/21/22 01:28 04/21/22 01:27 04/21/22 01:23 04/21/22 01:20 04/21/22 01:18 04/21/22 01:13 04/21/22 00:53 04/21/22 00:05 04/21/22 00:03 04/21/22 00:00 04/20/22 23:00 04/20/22 21:29 04/20/22 21:18 04/20/22 21:16 Pain Intensity Abdomen: Pain Intensity: 0 Transfer of Care Handoff Completed per policy Notes Mental Status: alert / awake / arousable and participated in evaluation Patient Amnestic to Procedure: Yes Nausea / Vomiting: adequately controlled Pain: adequately controlled Airway Patency, RR, SpO2: stable & adequate BP & HR: stable & adequate Hydration State: stable & adequate Neuraxial Anesthesia: was administered and sensory block resolved Anesthetic Complications: no major complications apparent
[2022-04-21] MEDS: PRENATAL VITAMIN 1 TAB PO SCH (09:16)
[2022-04-21] MEDS: DOCUSATE SODIUM 100 MG CAP PO SCH ×2 (09:16→19:52)
[2022-04-21] MEDS: IBUPROFEN 600 MG TAB PO PRN ×2 (12:17→19:51)
[2022-04-22] MEDS: IBUPROFEN 600 MG TAB PO PRN ×2 (00:28→08:28)
[2022-04-22 06:48] LABS: Hematocrit (blood only) 40.6 % (37-47); Hemoglobin 13.5 g/dL (12.0-16.0); Mean Corpuscular Hemoglobin 28.4 pg (25-34); Mean Corpuscular Hgb Conc 33.3 g/dL (32-36); Mean Corpuscular Volume 85.5 fL (80-100); Mean Platelet Volume 10.5 fL (7.4-10.4); Platelet Count 254 K/uL (130-400); RDW Standard Deviation 40.3 fL (36.4-46.3); Red Blood Count 4.75 M/uL (4.2-5.4); White Blood Count 14.05 K/uL (4.8-10.8)
--- NOTE | 2022-04-22 08:04 | Obstetrical Progress Note ---
Date of Service April 22, 2022 Assessment & Plan (1) , delivered, current hospitalization: stable, ready for dc home, instructions reviewed. f/u 6wks pp. Day #:: 1 Subjective Ambulation: ambulating normally Voiding: no voiding problems Diet Tolerance:: regular diet Lochia:: Small Feeding Type:: breast feeding no pain issues. ready to go home Physical Exam Constitutional WD/WN, vitals as above Respiratory normal respiratory effort, lungs clear to auscultation Cardiovascular Rate/Rhythm: regular rate and regular rhythm Gastrointestinal (Abdomen) Inspection/Auscultation: abdomen normal to inspection Percussion/Palpation: abdomen soft Fundus firm 2cm down Musculoskeletal nt calves no edema Neurologic grossly normal Psychiatric A+Ox3, euthymic affect Results & Data ([facility]) Vital Signs (Past 12 Hours) Vital Signs Temp Pulse Resp BP Pulse Ox 04/22/22 00:30 97.7 F 71 17 99/62 L 97
[2022-04-22] MEDS: DOCUSATE SODIUM 100 MG CAP PO SCH (08:28)
[2022-04-22] MEDS: PRENATAL VITAMIN 1 TAB PO SCH (08:28)
== END 2022-04-22 12:55 | disposition home or self-care (01) | DRG 807 ==
LOC: OPB 21:08 → 4S1 21:11 → 4E2 04-21 06:00

== ENCOUNTER 2025-04-24 14:26 | Inpatient (IN) ==
[2025-04-24] MEDS ORDERED: OXYTOCIN 30 UNITS/NSS 30 UNITS/500 ML BAG IV PRN (15:10)
[2025-04-24] MEDS ORDERED: LIDOCAINE 1% LOCAL 20 ML VIAL INFIL PRN (15:10)
--- NOTE | 2025-04-24 15:18 | Labor Progress Brief Note ---
Date of Service April 24, 2025 Subjective Patient arrives from home with c/o low back pain, mucus plug material passing, and contractions 8-9min apart. Unsure if she is LOF. No VB, good FM. Has prior CS and prior , desires TOLAC. Assessment & Plan (1) Previous delivery affecting , antepartum: Plan: with h/o , then C-Sec for breech, then . Vaginal deliveries were [id number] and [id number]. Desires attempt at another . Has made change since yesterday's exam, so now in labor. Reconfirmed verbally her consent for TOLAC/ and will proceed. She does not desire epidural. Will admit, IV, Labs. Discussed future AROM to augment her labor if needed as ctx pattern sparse, though cervix is changing. (2) Gestational diabetes: Plan: FSBG on admit. Has not required insulin. (3) Supervision of elderly multigravida: Physical Exam Constitutional: WD/WN, vitals as above + in distress Eyes: PERRL, conjunctivae normal, anicteric sclerae ENMT: external ear and nose normal, oropharynx normal Neck: supple Respiratory: normal respiratory effort and able to speak in complete sentences; no respiratory distress Cardiovascular: Rate/Rhythm: regular rate and regular rhythm Gastrointestinal (Abdomen): Gravid / AGA, nontender Musculoskeletal: no cyanosis or clubbing, extremities motor strength 5/5 Skin: no rashes, warm and dry Psychiatric: A+Ox3, euthymic affect Genitourinary: Speculum/Bimanual Exam: no vaginal lesions, no vaginal bleeding and uterus nontender OB Exam Abdomen: + vertex and + estimated weight (7) Manual OB Exam: + cervical dilation (4-5), + cervical effacement 50%, + station -2 and + amniotic fluid (No leaking evident) OB Exam Monitor Tracing: + external FHT monitor used, + external uterine monitor used (contractions Q8- 9min) and + category I chux under pt dry, membranes feel intact on exam. Lymphatic: no cervical or axillary lymphadenopathy Results & Data Vital Signs (Past 12 Hours) Vital Signs Temp Pulse BP 04/24/25 14:53 103 H 114/73 04/24/25 14:35 98.6 F Coding Level of Care Code None Diagnoses Previous delivery affecting , antepartum O34.219 Gestational diabetes O24.419 Supervision of elderly multigravida O09.529
[2025-04-24 15:38] LABS: Hematocrit (blood only) 36.5 % (37.0-47.0); Hemoglobin 12.7 g/dl (12.0-16.0); Mean Corpuscular Hemoglobin 29.2 pg (25.0-34.0); Mean Corpuscular Volume 83.9 fL (80.0-100.0); Platelet Count 258 K/uL (130-400); RDW Standard Deviation 40.4 fL (36.4-46.3); Red Blood Count 4.35 M/uL (4.20-5.40); White Blood Count 11.80 K/ul (4.8-10.8)
[2025-04-24] MEDS: LACTATED RINGER'S 1,000 ML IV PRN (16:05)
[2025-04-24] MEDS: OXYTOCIN 30 UNITS/NSS 30 UNITS/500 ML BAG IV PRN (23:07)
--- NOTE | 2025-04-24 23:14 | Delivery Summary ---
Vaginal Delivery Summary Date of Service April 24, 2025 Vaginal Delivery Summary DIAGNOSES: 1. Sánchez intrauterine at 37w6d gestation. 2. Spontaneous onset of labor. 3. Group B Streptococcus Neg 4. Prior Section and Prior Successful . PROCEDURE: Spontaneous vaginal delivery without laceration. SURGEON: Joselin Tamayo MD. MACHINIST 2ND SHIFT: None. ESTIMATED BLOOD LOSS: 76 mL. COMPLICATIONS: None. PLACENTA: Spontaneous and intact with a 3-vessel cord. DISPOSITION: Stable to labor and delivery. DESCRIPTION: The patient pushed well and brought the head to in DOA position. The infant's head was allowed to deliver with contraction force and no further active pushing, with the perineum protected during this time. There was no nuchal cord. The right shoulder was anterior. The shoulders and body delivered without any difficulty, and the infant was placed on the maternal abdomen. It was vigorous and moving all extremities, and making respiratory efforts. The cord was doubly clamped by the MD and then cut by the FOB. The placenta delivered spontaneously and was noted to be intact and with a 3VC. The cervix, vagina and perineum were examined and were found to be without defect requiring repair. The fundus was firm and lochia minimal immediately after delivery. [facility] Vaginal Delivery Charge Vaginal Delivery Codes: 83206 global code for the antepartum, delivery, and post-
[2025-04-24] MEDS ORDERED: ACETAMINOPHEN 325 MG TAB PO PRN (23:28)
[2025-04-24] MEDS ORDERED: HYDROCORTISONE ACETATE 25 MG SUPP PR PRN (23:28)
[2025-04-24] MEDS: IBUPROFEN 600 MG TAB PO PRN (23:51)
[2025-04-24] MEDS: BENZOCAINE 20% SPRY 85 APPLN/85 GM CAN EXT PRN (23:52)
[2025-04-25] MEDS: DIPHTHER/TETAN/PERTUS Vaccine (Tdap, Adol/Adult) 0.5mL IM ONE (00:26)
[2025-04-25 06:30] LABS: Hematocrit (blood only) 37.4 % (37.0-47.0); Hemoglobin 12.4 g/dl (12.0-16.0); Mean Corpuscular Hemoglobin 28.5 pg (25.0-34.0); Mean Corpuscular Volume 86.0 fL (80.0-100.0); Platelet Count 257 K/uL (130-400); RDW Standard Deviation 40.8 fL (36.4-46.3); Red Blood Count 4.35 M/uL (4.20-5.40); White Blood Count 19.82 K/ul (4.8-10.8)
[2025-04-25] MEDS: DOCUSATE SODIUM 100 MG CAP PO SCH (07:22)
[2025-04-25] MEDS: PRENATAL VITAMIN 1 TAB PO SCH (07:22)
--- NOTE | 2025-04-25 08:21 | Obstetrical Progress Note ---
Date of Service April 25, 2025 Assessment & Plan (1) , delivered: routine care . Subjective Ambulation: ambulating normally Voiding: no voiding problems Passing Gas:: Yes Diet Tolerance:: regular diet Lochia:: Small Feeding Type:: breast feeding Physical Exam Constitutional WD/WN, vitals as above Eyes PERRL, conjunctivae normal, anicteric sclerae Neck normal visual inspection Respiratory normal respiratory effort and able to speak in complete sentences; no respiratory distress and no labored breathing Cardiovascular Rate/Rhythm: regular rate and regular rhythm Extremities: no edema Chest (Breasts) Chest: normal inspection of chest Gastrointestinal (Abdomen) Inspection/Auscultation: abdomen normal to inspection Soft, postgravid Psychiatric A+Ox3, euthymic affect Genitourinary OB Exam Abdomen: + fundal height Fundus: + firm and + relation to umbilicus (fundus just below umbilicus); not tender Results & Data Vital Signs (Past 12 Hours) Vital Signs Temp Pulse Pulse Resp BP BP Pulse Ox 04/25/25 07:24 97.9 F 128 H 14 108/71 99 04/25/25 04:15 98.8 F 73 18 91/49 L 04/25/25 01:45 98.4 F 75 18 107/57 L 04/25/25 01:22 75 107/57 L 04/25/25 00:55 81 94/50 L 04/25/25 00:19 77 120/72 04/24/25 23:52 77 116/75 04/24/25 23:32 74 119/67 04/24/25 21:02 18 04/24/25 21:02 98.1 F 18 O2 Del Method 04/25/25 07:24 Room Air 04/25/25 04:15 04/25/25 01:45 04/25/25 01:22 04/25/25 00:55 04/25/25 00:19 04/24/25 23:52 04/24/25 23:32 04/24/25 21:02 04/24/25 21:02
[2025-04-25] MEDS: LACTATED RINGER'S 1,000 ML IV SCH (10:16)
[2025-04-26 05:42] VITALS: O2SAT 97
[2025-04-26 06:23] LABS: Hematocrit (blood only) 38.8 % (37.0-47.0); Hemoglobin 13.2 g/dl (12.0-16.0)
--- NOTE | 2025-04-26 07:52 | Obstetrical Progress Note ---
Date of Service April 26, 2025 Assessment & Plan (1) Encounter for care and examination after delivery: Days 2 status post . Patient doing well and stable for discharge Subjective Ambulation: ambulating normally Voiding: no voiding problems Passing Gas:: Yes Diet Tolerance:: regular diet Lochia:: Moderate Physical Exam Constitutional WD/WN, vitals as above Respiratory normal respiratory effort; no respiratory distress and no labored breathing Cardiovascular Extremities: no calf tenderness Gastrointestinal (Abdomen) Inspection/Auscultation: abdomen normal to inspection; abdomen not distended Percussion/Palpation: abdomen soft; abdomen nontender, no guarding and abdomen not rigid Genitourinary OB Exam Abdomen: + fundal height Fundus: + firm and + relation to umbilicus (Below); not tender or not boggy Results & Data Vital Signs (Past 12 Hours) Vital Signs Temp Pulse Resp BP Pulse Ox O2 Del Method 04/26/25 01:50 36.8 C 63 18 98/54 L 97 Room Air 04/25/25 20:30 36.6 C 66 18 112/66 95 Room Air
[2025-04-26 09:01] VITALS: BP 110/66; PULSE 73; RESP 20; TEMP 97.9
== END 2025-04-26 12:15 | disposition home or self-care (01) | DRG 807 ==
LOC: OPB 14:26 → 4S1 14:28 → 4E2 04-25 02:02